=== PATIENT | female | born 1990 | race Caucasian/White ===

== ENCOUNTER 2022-10-18 22:14 | Emergency (ER) | payer SELFPAY ==
[~2022-10-18] VITALS: Ht 165.1 cm; Wt 59.0 kg
[2022-10-18 22:19] VITALS: BP_SYST 123
--- NOTE | 2022-10-18 22:23 | NUR ---
Patient triaged and placed in waiting room. VSS and patient appears in no acute distress at this time. Accompanied by SELF, awaiting available bed, and MD notified of need for MSE.
--- NOTE | 2022-10-19 00:01 | NUR ---
ER in triage examining patient.
[2022-10-19] MEDS ORDERED: HYDR50TA61 PO (00:40)
[2022-10-19 01:26] VITALS: BP_SYST 128
--- NOTE | 2022-10-19 01:26 | NUR ---
Patient given written and verbal discharge instructions and verbalizes understanding. ER MD discussed with patient the care provided. Patient in stable condition. Rx of Hydroxyzine sent to pharmacy of choice by ER MD. Patient educated on pain management and to follow up with PMD. Pain Scale 0/10. Opportunity for questions provided and answered.
== END 2022-10-19 01:26 | disposition home or self-care (01) ==
LOC: SED 22:14
DX: F41.0 Panic disorder [episodic paroxysmal anxiety] (principal); Z79.899 Other long term (current) drug therapy
CPT/HCPCS: 99283